=== PATIENT | female | born 1990 | race Caucasian/White ===

== ENCOUNTER 2024-06-04 18:29 | Emergency (ER) | payer BC, SELFPAY ==
--- NOTE | ~2024-06-04 | XR_ITS ---
XR hand RT min 3V Ordering provider: Gene Luque MD History: . CAT BITES . Comparison: None. FINDINGS: BONES: No acute fracture or dislocation. JOINT SPACES: Normal. SOFT TISSUES: Normal. IMPRESSION: No acute osseous abnormality right hand. Reviewed, dictated and finalized at location A.
--- NOTE | ~2024-06-04 | XR_ITS ---
XR hand LT min 3V Ordering provider: Gene Luque MD History: . CAT BITES . Comparison: None. FINDINGS: BONES: No acute fracture or dislocation. JOINT SPACES: Well maintained. SOFT TISSUES: Soft tissue swelling in the area of the middle finger. IMPRESSION: No acute osseous abnormality left hand. Reviewed, dictated and finalized at location A.
[2024-06-04 18:29] VITALS: BP 111/81; PULSE 88; RESP 16; TEMP 36.4; O2SAT 97
--- NOTE | 2024-06-04 18:49 | ED.ANIMALBIT ---
HPI - Animal Bite General Chief Complaint: Animal Bite Stated Complaint: CAT BITE Time Seen by Provider: 06/04/24 18:34 Source: patient and family Mode of arrival: ambulatory Limitations: no limitations History of Present Illness HPI narrative: PATIENT CAME TO THE ED BY PRIVATE CAR WITH CAP BITES TO BOTH HANDS Related Data Allergies Allergy/AdvReac Type Severity Reaction Status Date / Time No Known Allergies Allergy Verified 06/04/24 19:48 Course Vital Signs Vital signs: Vital Signs Temperature 36.4 C L 06/04/24 18:29 Pulse Rate 88 06/04/24 18:29 Respiratory Rate 16 06/04/24 18:29 Blood Pressure 111/81 06/04/24 18:29 Pulse Oximetry 97 06/04/24 18:29 Oxygen Delivery Room Air 06/04/24 18:29 Temperature 36.4 C L 06/04/24 18:29 Pulse Rate 88 06/04/24 18:29 Respiratory Rate 16 06/04/24 18:29 Blood Pressure 111/81 06/04/24 18:29 Pulse Oximetry 97 06/04/24 18:29 Oxygen Delivery Room Air 06/04/24 18:29 MDM - Animal Bite MDM Narrative Medical decision making narrative: Impressions Hand X-Ray 06/04/24 19:59 IMPRESSION: No acute osseous abnormality left hand. Hand X-Ray 06/04/24 20:00 IMPRESSION: No acute osseous abnormality right hand. Medical Records Medical records narrative: PATIENT CAME TO THE ED WITH MULTIPLE CAT BITES TO BOTH HANDS PRIOR TO ARRIVAL. THE CAT WAS A STRAY CAT SHE IS TELLING ME THAT HIGH LIKELY HER FAMILY WERE ABLE TO CATCH THE CAT TOMORROW MORNING. AND WOULD LIKE TO POSTPONED THE RABIES VACCINE UNTIL TOMORROW. PATIENT IS UP-TO-DATE FOR TETANUS SHOT, LAST 1 WAS 2 YEARS AGO X-RAY OF HANDS SHOWED NO ACUTE OSSEOUS ABNORMALITY. PATIENT RECEIVED A PRESCRIPTION OF AUGMENTIN PRIOR TO DISCHARGE. Imaging Data My impression: Impressions Hand X-Ray 06/04/24 19:59 IMPRESSION: No acute osseous abnormality left hand. Hand X-Ray 06/04/24 20:00 IMPRESSION: No acute osseous abnormality right hand. Radiologist's impression: Impressions Hand X-Ray 06/04/24 19:59 IMPRESSION: No acute osseous abnormality left hand. Hand X-Ray 06/04/24 20:00 IMPRESSION: No acute osseous abnormality right hand. Critical Care Time Critical Care Time Critical Care Time: No Discharge Plan Discharge Clinical Impression: Cat bite Patient Disposition: Home, Self-Care Condition: Stable Instructions: Antibiotic Form, Animal Bite (ED) Additional Instructions: RETURN IF SYMPTOMS ARE WORSENING , CALL YOUR FAMILY PHYSICIAN FOR APPOINTMENT, TAKE TYLENOL NEEDED FOR ACHES AND PAIN, CONTINUE HOME MEDICATIONS. IF YOU COULD NOT CATCH THE CAT: SHE SHOULD HAVE THE RABIES VACCINE SOON POSSIBLE PREFERABLY WITHIN 24 HOURS BUT CERTAINLY WITHIN [address] WITH SUSPECTED RABIES SHOULD BE CONFINED AND OBSERVED FOR 10 DAYS POST BITE IN COORDINATION WITH PUBLIC HEALTH AUTHORITIES. VACCINATION SHOULD BE AVOIDED DURING THE OBSERVATION. TO AVOID CONFUSING ADVERSE VACCINE REACTIONS WITH RABIES CONTACT LOCAL HEALTH DEPARTMENT IN THE MORNING FOR FURTHER EVALUATION AND MANAGEMENT. Prescriptions: New amoxicillin-pot clavulanate [Augmentin] 500-125 mg tablet 1 tablet PO Q8H Qty: 30 0RF Follow-up/Referrals: UNKNOWN,DOCTOR [Primary Care Provider] -
--- NOTE | 2024-06-04 18:54 | PC.NURSE ---
patient is currently filling out her portion of animal control form
--- NOTE | 2024-06-04 19:47 | PC.NURSE ---
wrapped wounds on both hands with non-aderent pads and coban
[2024-06-04] MEDS: Please add drug allergy info to patient profile. 1 EACH XX (19:49)
[2024-06-04] MEDS: AMOXICILLIN/CLAVULANATE K 875-125 MG TAB 1 TABLET PO (19:55)
[2024-06-04 20:25] VITALS: BP 110/78; PULSE 82; RESP 18; O2SAT 97
== END 2024-06-04 20:25 | disposition home or self-care (01) ==
PROVIDERS: Emergency Provider Emergency Medicine
DX: S61.452A Open bite of left hand, initial encounter (principal); S61.451A Open bite of right hand, initial encounter; W55.01XA Bitten by cat, initial encounter
CPT/HCPCS: 73130; 99284; A9270